=== PATIENT | male | born 1985 | race Two or more races ===

== ENCOUNTER 2021-09-25 05:52 | Outpatient (CLI) | payer OTHER | END 2021-09-25 15:00 | disposition home or self-care (01) | LOC: LAB 05:52 | PROVIDERS: ATTEND Obstetrics & Gynecology | DX: Z20.828 Contact with and (suspected) exposure to other viral communicable diseases (principal) ==

== ENCOUNTER 2022-04-29 00:14 | Emergency (ER) | payer OTHER ==
[~2022-04-29] VITALS: Ht 167.6 cm; Wt 100.7 kg
[2022-04-29] MEDS ORDERED: PEPCID40 MG PO (04:18)
[2022-04-29] MEDS ORDERED: PROTONIX40 MG PO (04:18)
[2022-04-29] MEDS ORDERED: ONDANSETRON ODT4 MG PO (04:18)
== END 2022-04-29 04:28 ==
LOC: ER 00:14
DX: K29.70 Gastritis, unspecified, without bleeding (principal); R11.0 Nausea